=== PATIENT | female | born 1955 | race Two or more races ===

== ENCOUNTER 2023-12-16 13:10 | Emergency (ER) | payer MEDICARE, OTHER ==
[~2023-12-16] VITALS: Ht 170.2 cm; Wt 80.2 kg
[2023-12-16] MEDS: KETOROLAC TROMETH 30 MG/ML 1ML VIAL IM ONE (16:38)
[2023-12-16] MEDS: TETANUS-DIPTH-ACEL PERTUSSIS 0.5ML SYR Tdap IM ONE (16:39)
[2023-12-16 16:57] VITALS: BP 117/63; PULSE 69; RESP 20; TEMP 98.4; O2SAT 98
[2023-12-16] MEDS ORDERED: IBUP1TAB5 PO (17:10)
[2023-12-16] MEDS ORDERED: CIPR-173 PO (17:10)
[2023-12-16] MEDS ORDERED: HYDR-4902 PO (17:10)
== END 2023-12-16 17:32 | disposition home or self-care (01) ==
LOC: ER 13:10
DX: S92.515A Nondisplaced fracture of proximal phalanx of left lesser toe(s), initial encounter for closed fracture (principal); X58.XXXA Exposure to other specified factors, initial encounter; Y93.89 Activity, other specified; Y92.89 Other specified places as the place of occurrence of the external cause; Y99.8 Other external cause status
CPT/HCPCS: 73630; 90471; 90715; 96372; 99284; J1885